=== PATIENT | male | born 2000 | race Caucasian/White ===

== ENCOUNTER 2022-06-09 22:50 | Emergency (ER) | payer OTHER ==
[~2022-06-09] VITALS: Ht 172.7 cm; Wt 95.3 kg
[2022-06-09 22:57] VITALS: BP 184/74
--- NOTE | 2022-06-09 23:04 | NUR ---
TO LOBBY FOLLOWING TRIAGE
--- NOTE | 2022-06-10 00:10 | NUR ---
PT [facility]BS, AFTER NOTIFYING REGISTRATION
== END 2022-06-10 00:10 | disposition left against medical advice (07) ==
LOC: MED 22:50
DX: M25.572 Pain in left ankle and joints of left foot (principal); Z53.21 Procedure and treatment not carried out due to patient leaving prior to being seen by health care provider